=== PATIENT | male | born 1950 | race Hispanic/Latino ===

== ENCOUNTER 2021-03-12 15:33 | Inpatient (IN) | payer MEDICARE, MEDICAID ==
[2021-03-12 16:34] LABS: #Monocytes 0.7 10x3/uL (0.0-1.1); %Basophils 0.1 % (0.0-2.0); %Lymphocytes 8.7 % (18.0-47.0); %Monocytes 4.6 % (0.0-10.0); %Neutrophils 86.1 % (40.0-75.0); Hemoglobin 14.1 g/dL (13.5-17.5); Mean Corpuscular HGB CONC 32.1 g/dL (32.0-36.0); Mean Corpuscular Hemoglobin 31.1 pg (27.0-33.0); Mean Corpuscular Volume 96.7 fl (81.2-95.1); Mean Platelet Volume 11.5 fl (7.4-10.4); Platelet Count 126 10x3/uL (150-450); Red Blood Cell (RBC) Count 4.54 10x6/uL (4.32-5.72); White Blood Cell (WBC) Count 15.1 10x3/uL (3.5-10.5)
[2021-03-12 16:39] LABS: Actual Bicarbonate (HCO3v) 23 mEq/L (22-28); Base Excess -0.3 mEq/L (-2.0 to +3.0); Chloride (VBG) 115 mmol/L (98-106); Potassium (VBG) 3.54 mmol/L (3.70-5.30); Puncture Site Other Site; RapidComm Collect By lab; Sodium 153.9 mmol/L (133-146); pH (venous) 7.44 (7.32-7.43)
[2021-03-12 16:50] LABS: ALT (SGPT) 102 U/L (8-55); AST (SGOT) 135 U/L (5-34); Albumin 3.9 g/dL (3.4-4.8); Alkaline Phosphatase 89 U/L (40-110); Anion Gap 19 mmol/L (10-20); BUN (Urea Nitrogen) 55 mg/dL (8.4-25.7); Bilirubin, Total 1.2 mg/dL (0.2-1.2); CK (CPK) 3750 U/L (30-200); Calc. Creatinine Clearance 0 mL/min (70-130); Calcium 9.4 mg/dL (7.8-10.44); Carbon Dioxide 24 mmol/L (23-31); Chloride 116 mmol/L (98-107); Globulin 2.8 g/dL (2.4-3.5); Glucose 509 mg/dL (80-115); Lipase 73 U/L (8-78); Potassium 3.6 mmol/L (3.5-5.1); Protein, Total 6.7 g/dL (5.8-8.1); Sodium 155 mmol/L (136-145)
[2021-03-12 16:55] LABS: PTT 20.3 sec (22.0-33.0); Prothrombin Time 11.2 sec (9.5-12.1)
[2021-03-12 17:10] LABS: Phosphorus 4.4 mg/dL (2.3-4.7)
[2021-03-12 17:11] LABS: Acetaminophen Less than 6.0 mcg/mL (10.0-30.0); Alcohol Less than 10 mg/dL (Less than 10); Magnesium 2.7 mg/dL (1.6-2.6); Salicylate Less than 8.0 mg/dL (15.0-30.0)
[2021-03-12 17:29] LABS: Bilirubin Neg (Negative); Blood, Urine 150 (Negative); Clarity Clear (Clear); Glucose, Urine (Dipstick) >=1000 mg/dL (Negative); Ketone, Urine 5 mg/dL (Negative); Leukocyte Negative (Negative); Nitrite Negative (Negative); Protein, Urine (Dipstick) 100 mg/dl (Neg-Trace); Specific Gravity, Urine 1.015 (1.002-1.036); Urobilinogen Normal mg/dL (Less than 2)
[2021-03-12 17:31] LABS: CKMB 2.2 ng/mL (0-6.6)
[2021-03-12 17:35] LABS: Amphetamine Not Detected (NotDetected); Barbiturates Screen Not Detected (NotDetected); Benzodiazepine Screen Not Detected (NotDetected); Cocaine Metabolite Screen Not Detected (NotDetected); Methadone Not Detected (NotDetected); Methamphetamine Not Detected (NotDetected); Opiate Screen Not Detected (NotDetected); Oxycodone Screen Not Detected (NotDetected); Phencyclidine (PCP) Not Detected (NotDetected); Renal Epithelial 0-3 HPF (None Seen); Squamous Epithelial 0-3 HPF (0-3); THC/Cannabinoid Screen Not Detected (NotDetected); Transitional Epithelial 0-3 HPF (None Seen); Tricyclic Screen Not Detected (NotDetected)
[2021-03-12 17:36] LABS: Bacteria/HPF 1+ HPF (None Seen); Mucous/LPF 1+ LPF (<2+)
[2021-03-12] MEDS ORDERED: Cefepime 2 GM VIAL ONE (17:49)
[2021-03-12] MEDS ORDERED: Guaifenesin DM 100-10/5 ML UDCUP PO PRN (18:02)
[2021-03-12] MEDS ORDERED: HYDROcodone/Acetaminophen 5/325 mg Tablet PO PRN (18:02)
[2021-03-12] MEDS ORDERED: Acetaminophen 325 MG TAB PO PRN (18:02)
[2021-03-12] MEDS ORDERED: Ondansetron PF 4 MG/2 ML Vial IVP PRN (18:02)
[2021-03-12] MEDS ORDERED: Dextrose 50% Abboject 50 ML SYRINGE SLOW IVP PRN (18:06)
[2021-03-12] MEDS ORDERED: Dextrose 5% in Water 1,000 ML IV PRN (18:06)
[2021-03-12] MEDS ORDERED: VANCOMYCIN 1.25 GM/250 ML BAG 1.25 GM in Premix Bag 1 BAG IVPB SCH (18:15)
[2021-03-12] MEDS ORDERED: traZODone HCl 50 MG TAB PO PRN (19:16)
[2021-03-12 19:19] LABS: Lactic Acid 2.4 mmol/L (0.5-2.2)
[2021-03-12 19:34] LABS: SARS-CoV-2 NAA Rapid Test Not Detected (NotDetected)
[2021-03-12] MEDS ORDERED: Famotidine 20 MG TAB PO SCH (21:00)
[2021-03-12] MEDS ORDERED: Ziprasidone 20 MG VIAL IM SCH (21:30)
[2021-03-12] MEDS ORDERED: Sterile Water 10 ML VIAL FS PRN (21:30)
[2021-03-12] MEDS: Dextrose 5% in Water 1,000 ML IV SCH (21:47)
[2021-03-13] MEDS: Lorazepam 2 MG/ML VIAL SLOW IVP PRN ×3 (01:53→15:08)
[2021-03-13] MEDS: Dextrose 5% in Water 1,000 ML IV SCH ×3 (03:18→23:31)
[2021-03-13 04:21] LABS: Anion Gap 10 mmol/L (10-20); BUN (Urea Nitrogen) 33 mg/dL (8.4-25.7); Calc. Creatinine Clearance 67 mL/min (70-130); Calcium 8.1 mg/dL (7.8-10.44); Carbon Dioxide 27 mmol/L (23-31); Chloride 123 mmol/L (98-107); Glucose 285 mg/dL (80-115); Potassium 3.5 mmol/L (3.5-5.1); Sodium 156 mmol/L (136-145)
[2021-03-13 04:38] LABS: #Monocytes 0.6 10x3/uL (0.0-1.1); #Neutrophils 10.6 10x3/uL (1.5-8.4); %Basophils 0.1 % (0.0-2.0); %Lymphocytes 12.7 % (18.0-47.0); %Monocytes 4.8 % (0.0-10.0); %Neutrophils 81.9 % (40.0-75.0); Hemoglobin 11.5 g/dL (13.5-17.5); Mean Corpuscular HGB CONC 32.4 g/dL (32.0-36.0); Mean Corpuscular Hemoglobin 31.7 pg (27.0-33.0); Mean Corpuscular Volume 97.8 fl (81.2-95.1); Mean Platelet Volume 11.4 fl (7.4-10.4); RBC Distribution Width 12.7 % (11.5-14.5); Red Blood Cell (RBC) Count 3.63 10x6/uL (4.32-5.72); White Blood Cell (WBC) Count 12.9 10x3/uL (3.5-10.5)
[2021-03-13 04:39] LABS: Platelet Count 89 10x3/uL (150-450)
[2021-03-13 05:07] LABS: Platelet Morphology Comment Appears Decreased; RBC Morphology Normal
[2021-03-13] MEDS: Insulin Regular 300 UNITS/3 ML VIAL SC PRN ×3 (06:31→16:24)
[2021-03-13] MEDS: Enoxaparin Sodium 40 MG/0.4 ML SYRINGE SC SCH ×2 (07:44→09:14)
[2021-03-13] MEDS: Famotidine 20 MG TAB PO SCH ×2 (08:46→20:15)
[2021-03-13] MEDS: Benztropine 1 MG TAB PO SCH (08:47)
[2021-03-13] MEDS: Cefepime 1 GM in Sodium Chloride 0.9% 100 ML IVPB SCH ×2 (08:48→20:19)
[2021-03-13 16:46] LABS: Strep pneumo Urine Ag NEGATIVE (NEGATIVE)
[2021-03-13 16:47] LABS: Legionella Urinary Ag Negative (Negative)
[2021-03-13] MEDS: risperiDONE 0.25 MG TAB PO SCH (20:19)
[2021-03-14] MEDS: Lorazepam 2 MG/ML VIAL SLOW IVP PRN (02:00)
[2021-03-14] MEDS: Dextrose 5% in Water 1,000 ML IV SCH ×3 (02:54→17:57)
[2021-03-14 04:42] LABS: Anion Gap 10 mmol/L (10-20); BUN (Urea Nitrogen) 22 mg/dL (8.4-25.7); Calc. Creatinine Clearance 83 mL/min (70-130); Calcium 7.8 mg/dL (7.8-10.44); Carbon Dioxide 26 mmol/L (23-31); Chloride 116 mmol/L (98-107); Glucose 244 mg/dL (80-115); Potassium 3.2 mmol/L (3.5-5.1); Sodium 149 mmol/L (136-145)
[2021-03-14] MEDS: Insulin Regular 300 UNITS/3 ML VIAL SC PRN ×3 (06:30→16:36)
[2021-03-14] MEDS ORDERED: FLU VACC QS2021-22(65YR UP)/PF 240 MCG/0.7 ML SYRINGE IM ONE (09:00)
[2021-03-14] MEDS: Famotidine 20 MG TAB PO SCH ×2 (09:49→22:27)
[2021-03-14] MEDS: Cefepime 1 GM in Sodium Chloride 0.9% 100 ML IVPB SCH ×2 (09:54→22:26)
[2021-03-14] MEDS: Enoxaparin Sodium 40 MG/0.4 ML SYRINGE SC SCH (09:55)
[2021-03-14] MEDS: Benztropine 1 MG TAB PO SCH (09:55)
[2021-03-14] MEDS ORDERED: Potassium Chloride 20 MEQ TAB PO SCH (13:45)
[2021-03-14] MEDS ORDERED: Electrolyte Replacement Protocol FS PRN (13:45)
[2021-03-14 21:25] LABS: Anion Gap 12 mmol/L (10-20); BUN (Urea Nitrogen) 17 mg/dL (8.4-25.7); Calc. Creatinine Clearance 94 mL/min (70-130); Carbon Dioxide 27 mmol/L (23-31); Chloride 108 mmol/L (98-107); Glucose 135 mg/dL (80-115); Potassium 3.3 mmol/L (3.5-5.1); Sodium 144 mmol/L (136-145)
[2021-03-14] MEDS: risperiDONE 0.25 MG TAB PO SCH (22:27)
[2021-03-15 04:02] LABS: #Eosinphils 0.2 10x3/uL (0.0-0.5); #Monocytes 0.7 10x3/uL (0.0-1.1); #Neutrophils 7.7 10x3/uL (1.5-8.4); %Basophils 0.2 % (0.0-2.0); %Eosinophils 1.6 % (0.0-6.0); %Lymphocytes 20.4 % (18.0-47.0); %Neutrophils 71.5 % (40.0-75.0); Hemoglobin 11.3 g/dL (13.5-17.5); Mean Corpuscular HGB CONC 33.8 g/dL (32.0-36.0); Mean Corpuscular Volume 91.8 fl (81.2-95.1); Mean Platelet Volume 12.2 fl (7.4-10.4); Platelet Count 87 10x3/uL (150-450); RBC Distribution Width 11.5 % (11.5-14.5); Red Blood Cell (RBC) Count 3.64 10x6/uL (4.32-5.72); White Blood Cell (WBC) Count 10.8 10x3/uL (3.5-10.5)
[2021-03-15 04:14] LABS: Anion Gap 12 mmol/L (10-20); BUN (Urea Nitrogen) 14 mg/dL (8.4-25.7); CRP (Inflammatory) 2.51 mg/dL (= or < 0.5); Calc. Creatinine Clearance 94 mL/min (70-130); Calcium 7.8 mg/dL (7.8-10.44); Carbon Dioxide 23 mmol/L (23-31); Chloride 108 mmol/L (98-107); Glucose 192 mg/dL (80-115); Potassium 3.3 mmol/L (3.5-5.1); Sodium 140 mmol/L (136-145)
[2021-03-15] MEDS: Dextrose 5% in Water 1,000 ML IV SCH ×3 (04:59→22:56)
[2021-03-15] MEDS ORDERED: Potassium Chloride 20 MEQ TAB PO SCH ×2 (05:15→13:00)
[2021-03-15 06:41] LABS: Platelet Morphology Comment Appears Decreased; RBC Morphology Normal
[2021-03-15] MEDS: Famotidine 20 MG TAB PO SCH ×2 (08:59→21:18)
[2021-03-15] MEDS: Cefepime 1 GM in Sodium Chloride 0.9% 100 ML IVPB SCH ×2 (08:59→21:17)
[2021-03-15] MEDS: Enoxaparin Sodium 40 MG/0.4 ML SYRINGE SC SCH (08:59)
[2021-03-15] MEDS: Benztropine 1 MG TAB PO SCH (09:00)
[2021-03-15] MEDS: Insulin Regular 300 UNITS/3 ML VIAL SC PRN ×2 (09:18→11:59)
[2021-03-15 09:39] LABS: Potassium 3.3 mmol/L (3.5-5.1)
[2021-03-15 10:52] LABS: Magnesium 1.9 mg/dL (1.6-2.6)
[2021-03-15 18:52] LABS: Potassium 3.7 mmol/L (3.5-5.1)
[2021-03-15] MEDS: risperiDONE 0.25 MG TAB PO SCH (21:18)
[2021-03-16] MEDS: Dextrose 5% in Water 1,000 ML IV SCH ×3 (04:40→20:35)
[2021-03-16] MEDS ORDERED: Magnesium 2 GM/50 ML 2 GM in Premix Bag 1 BAG IVPB SCH (05:15)
[2021-03-16] MEDS: Insulin Regular 300 UNITS/3 ML VIAL SC PRN ×2 (07:48→21:40)
[2021-03-16] MEDS: Benztropine 1 MG TAB PO SCH (10:37)
[2021-03-16] MEDS: Cefepime 1 GM in Sodium Chloride 0.9% 100 ML IVPB SCH ×2 (10:37→20:22)
[2021-03-16] MEDS: Famotidine 20 MG TAB PO SCH ×2 (10:37→20:22)
[2021-03-16] MEDS: Enoxaparin Sodium 40 MG/0.4 ML SYRINGE SC SCH (10:39)
[2021-03-16 12:38] LABS: Anion Gap 10 mmol/L (10-20); BUN (Urea Nitrogen) 11 mg/dL (8.4-25.7); Calc. Creatinine Clearance 100 mL/min (70-130); Calcium 8.2 mg/dL (7.8-10.44); Carbon Dioxide 24 mmol/L (23-31); Chloride 107 mmol/L (98-107); Glucose 160 mg/dL (80-115); Potassium 3.3 mmol/L (3.5-5.1); Sodium 138 mmol/L (136-145)
[2021-03-16] MEDS ORDERED: Potassium Bicarbonate/Cit Ac 20 MEQ TAB PO SCH (16:00)
[2021-03-16] MEDS: risperiDONE 0.25 MG TAB PO SCH (20:22)
[2021-03-16 21:09] LABS: Potassium 4.3 mmol/L (3.5-5.1)
[2021-03-17] MEDS: Dextrose 5% in Water 1,000 ML IV SCH ×2 (03:47→12:59)
[2021-03-17] MEDS ORDERED: Magnesium 2 GM/50 ML 2 GM in Premix Bag 1 BAG IVPB SCH (06:00)
[2021-03-17 09:23] VITALS: BMI 23.5
[2021-03-17] MEDS: Cefepime 1 GM in Sodium Chloride 0.9% 100 ML IVPB SCH (09:42)
[2021-03-17] MEDS: Famotidine 20 MG TAB PO SCH (09:42)
[2021-03-17] MEDS: Benztropine 1 MG TAB PO SCH (09:42)
[2021-03-17] MEDS: Enoxaparin Sodium 40 MG/0.4 ML SYRINGE SC SCH (09:42)
[2021-03-17] MEDS ORDERED: Sodium Chloride 0.9% 100 ML ONE (09:42)
[2021-03-17 14:00] VITALS: TEMP 98.9
[2021-03-17 16:05] VITALS: BP 125/72
== END 2021-03-17 17:01 | disposition home health service (06) | DRG 871 ==
LOC: CSHERS 15:33 → CSHICU 20:23 → CSHTELE 03-15 20:51
PROVIDERS: ADMIT Family Medicine; ATTEND Internal Medicine
DX: A41.9 Sepsis, unspecified organism (principal); G93.41 Metabolic encephalopathy; N17.0 Acute kidney failure with tubular necrosis; E87.2 Acidosis; E87.0 Hyperosmolality and hypernatremia; M62.82 Rhabdomyolysis; Z20.822 Contact with and (suspected) exposure to COVID-19; E86.9 Volume depletion, unspecified; R65.20 Severe sepsis without septic shock; F32.A Depression, unspecified; F41.9 Anxiety disorder, unspecified; E11.65 Type 2 diabetes mellitus with hyperglycemia; F20.9 Schizophrenia, unspecified; E78.5 Hyperlipidemia, unspecified; E87.6 Hypokalemia; Z79.84 Long term (current) use of oral hypoglycemic drugs
CPT/HCPCS: 0240U; 36415; 36416; 70450; 71045; 74176; 80048; 80053; 80306; 80307; 81003; 81015; 82010; 82550; 82553; 82805; 83605; 83690; 83735; 84100; 84145; 84443; 84484; 85025; 85610; 85730; 86140; 87040; 87086; 87449; 87899; 93005; J0692; J1650; J1815; J2060; J3370; J3475; J3486; J3490; J7070